=== PATIENT | female | born 1930 | race Caucasian/White ===

== ENCOUNTER 2017-06-30 13:37 | Inpatient (IN) | payer MEDICARE, OTHER ==
[2017-06-30] MEDS ORDERED: MECLIZINE HCL 25 MG TABLET PO ONE (14:38)
[2017-06-30 15:06] LABS: Hematocrit 45.9 % (37.0-47.0); Hemoglobin 14.4 gm/dL (12.5-16.0); Mean Cell Volume 101.5 fl (78-100); Mean Corpuscular Hemoglobin 31.9 pg (27-31); Mean Corpuscular Hgb Conc 31.4 g/dl (32-36); Mean Platelet Volume 10.9 fl (6.0-9.5); Neutrophil # 4.4 K/mm3 (1.3-6.0); Neutrophil % 63.7 % (42-75.0); Platelet Count 141 K/mm3 (150-450); Red Blood Count 4.52 M/mm3 (4.2-5.4); Red Cell Distribution Width 14.7 % (11.5-14.0); White Blood Count 6.9 K/mm3 (4.0-10.5)
[2017-06-30 15:26] LABS: ALT 15 U/L (19-67); AST 33 U/L (0-48); Albumin * 3.5 gm/dl (3.4-5.0); Alkaline Phosphatase * 52 U/L (50-170); Anion Gap 11.3 mmol/L (6.8-13.8); BUN/Creatinine Ratio 28.4 (9.0-21.6); Bilirubin, Total 0.7 mg/dL (0.0-1.1); Blood Urea Nitrogen 21 mg/dL (3-23); Ca. Corrected For Albumin 9.2 mg/dL (8.4-10.2); Calcium * 9.1 mg/dL (7.9-10.9); Carbon Dioxide 28.8 mmol/L (24-32.6); Chloride 104 mmol/L (97-106); Glucose * 91 mg/dL (70-110); Potassium 5.1 mmol/L (3.4-4.6); Sodium 139 mmol/L (132-142); Total Protein 7.6 gm/dL (6.2-8.2); Troponin I Less than 0.017 ng/ml (0.00-0.10)
[2017-06-30] MEDS ORDERED: NORMAL SALINE 1,000 ML IV ONE (15:37)
[2017-06-30] MEDS ORDERED: MECLIZINE HCL 25 MG TABLET ONE (15:40)
[2017-06-30 16:34] LABS: Urine Appearance Clear; Urine Bacteria None Seen; Urine Bilirubin Negative (NEGATIVE); Urine Blood Negative /ul (NEGATIVE); Urine Color Yellow; Urine Ketone 5 mg/dL (NEGATIVE); Urine Nitrite Negative (NEGATIVE); Urine Protein Negative (NEGATIVE); Urine RBC None Seen /hpf (0-5); Urine Specific Gravity 1.025 SP.GR. (1.005-1.010); Urine Urobilinogen Normal (NORMAL); Urine WBC None Seen /hpf (0-5)
--- NOTE | 2017-06-30 18:24 | ERNOTE ---
Dizziness ER Record Presenting Symptoms: dizziness, weakness, other - patient c/o sob Time Seen by Provider: 06/30/17 14:20 Source: patient, family Exam Limitations: no limitations - History of Present Illness Narrative: patient c/o weakness, dizzynees and sob for last several days Timing and Duration: gradual onset Severity: max: moderate Severity: currently: moderate Associated Symptoms: Present: weakness, light headedness Sense of movement: Present: spinning Decreased ability to stand/walk:: Present: weak, difficult, off balance Usually:: Present: walks only w/ assistance Modifying Factors - (Improves): Reports: changing position, standing position Modifying Factors - (Worsens): Reports: nothing Review of Systems - Narrative Narrative: patient has gradually become weaker with dizzyness - Review of Systems Constitutional: Present: See HPI, weakness, fatigue, malaise EYE: Present: no symptoms reported ENT: Present: no symptoms reported Respiratory: Present: See HPI, shortness of breath, orthopnea Cardiology: Present: no symptoms reported Gastrointestinal/Abdominal: Present: no symptoms reported Genitourinary: Present: no symptoms reported Musculoskeletal: Present: no symptoms reported Skin: Present: no symptoms reported Neurological: Present: weakness, tingling Endocrine: Present: no symptoms reported Hematologic/Lymphatic: Present: no symptoms reported Psych: Present: no symptoms reported All Other Systems: All systems neg except as marked - Narrative Narrative: patient poor historian - Patient's Past Medical History Patient History - Cardiac/Respiratory: Atrial Fibrillation Patient History - Cancer: No Hx of Cancer Patient History - Surgical Procedures: Noncontributory Patient History - Other: None LMP (females 10-50): Menopausal - Family History Family History:: no untoward family reactions to anesthesia, no familial bleeding tendencies, no family history of clotting disorders, no family history of premature - Social History Living Situations: alone Abuse History: No History of abuse Psych History: No pertinent hx Smoking Status: Never smoker Have you smoked in the past 12 months: No Do you dip or chew tobacco: No Patient requests Smoking Cessation Consult: No Initiate information on Smoking Cessation: No Alcohol Use: none - Immunizations Immunizations Up to Date: Yes Hx Pneumococcal Vaccination: Yes History of Influenza Vaccine: Yes Physical Exam - Physical Exam General Appearance: Present: mild distress, lethargic, thin, cachetic Head Exam: Present: normal inspection, no evidence of injury Eye Exam: Normal inspection: bilateral, PERRL: bilateral, EOMI: bilateral Ears, Nose, Throat: Present: normal ENT inspection Neck: Present: normal inspection, nontender Respiratory: Present: decreased breath sounds, rales, rhonchi Cardiovascular/Chest: Present: irregularly irregular Peripheral Pulses: N=norm/S=strong/W=weak/B=bound/A=absent: Carotid (R): Normal , Carotid (L): Normal, Radial (R): Normal, Radial (L): Normal, Femoral (R): Normal, Femoral (L): Normal, Dorsalis-pedis (R): Normal, Dorsalis-pedis (L): Normal Gastrointestinal/Abdominal: Present: normal bowel sounds, nontender, nondistended, soft, no organomegaly Back Exam: Present: normal inspection, normal range of motion, no vertebral tenderness, other - noted kyphosis Extremity Exam: Present: normal inspection, normal range of motion, no edema, other - contractures of extremities DTR: N=norm/NB=norm/brisk/A=abs/DD=dull/dimin/HC=hyperactive: Bicep (R): Normal , Bicep (L): Normal, Tricep (R): Normal, Tricep (L): Normal, Knee (R): Normal, Knee (L): Normal, Ankle (R): Normal, Ankle (L): Normal Skin Exam: Present: normal color, warm/dry Lymphatic Exam: Present: no adenopathy ED Progress - Date and Time Seen: Date and Time: 06/30/17 18:23 patient unchanged - Results and Orders Patient's Lab Results:: I have reviewed the patient's lab results. - Vital Signs Patient's Vital Signs:: I have reviewed the patient's vital signs. Vital Signs: Vital Signs 06/30/17 06/30/17 06/30/17 14:09 16:13 16:51 Temperature 36.3 C L Pulse Rate 102 H 92 94 Respiratory 17 88 H 19 Rate Blood Pressure 122/74 121/69 132/58 O2 Sat by Pulse 99 94 95 Oximetry 06/30/17 06/30/17 17:40 18:08 Temperature Pulse Rate 96 86 Respiratory 20 21 H Rate Blood Pressure 139/64 113/70 O2 Sat by Pulse 99 91 Oximetry - EKG EKG: atrial fibrillation - Progress/Reassessment Chief Complaint: Dizziness Progress:: Unchanged - Transfer of Care Expected Disposition: Admit Plan - Plan Plan: to be admitted Departure Clinical Impression: Pneumonia - Departure Disposition: FM Condition: Poor Referrals: Rene Ramos MD [Primary Care Provider] -
[2017-06-30 19:06] LABS: Prothrombin Time (Patient) 11.4 Seconds (9.0-11.0)
[2017-06-30 19:07] LABS: INR 1.14 INR (0.90-1.10)
--- NOTE | 2017-06-30 23:46 | HP ---
Chief Complaint - Chief Complaint Date of Service: 06/30/17 Time of Service: 23:44 Chief Complaint: ''Dizziness''. Source of HPI- Pt reliable, ERP report, Pt's EMR. History of Present Illness: Mrs. Christianson is a 86-yr-old WF pt of Dr. Rene Ramos with a PMH of: A-fib, CHF, HTN, Hypothyroidism & Osteoporosis. Pt states that she has always had dizziness and but today's episode was the worse she had ever felt and could not take it. She called her neighbour friends who brought her to the ED. She describes the dizziness as the sensation of head spinning. She denies any falls. She still gets around with a cane. She denies the associated symptoms of : SOB & palpitations. She also denies coughing, fever and chills. At the ED, the CXR showed: Left basilar opacities which was concerning for Pneumonia and small LT pleural effusion. The head CT revealed: small calcified mass on RT temporal lobe, concerning for a small Meningioma, & old lacunar infarct, and further evaluation with MRI of the brain was recommended. She had BNP of 3945, otherwise all other labs were unremarkable. UA negative of infection. During physical exam, she had desaturations to 85% while at rest, had decreased LS and reports ongoing dizziness. According to PSI for CAP, she is a class IV risk out of V which carries a mortality of 9.3% and will therefore need to be admitted inpatient. - Patient's Past Medical History Patient History - Medical: Hypothyroidism, Osteoporosis Patient History - Cardiac/Respiratory: Atrial Fibrillation, CHF, Hypertension Patient History - Cancer: No Hx of Cancer Patient History - Surgical Procedures: Appendectomy, Colonoscopy, Hysterectomy, T & A Patient History - Other: None LMP (females 10-50): Menopausal - Family History Family History:: no untoward family reactions to anesthesia, no familial bleeding tendencies, no family history of clotting disorders, no family history of premature - Family History Father Family History - Medical: , Other - Rheumatoid Arthritis. Mother Family History - Medical: Family History - Cardiac/Respiratory: Pneumonia - Social History Living Situations: alone Abuse History: No History of abuse Psych History: No pertinent hx Smoking Status: Never smoker Have you smoked in the past 12 months: No Do you dip or chew tobacco: No Patient requests Smoking Cessation Consult: No Initiate information on Smoking Cessation: No Alcohol Use: none Drug Use: none - Immunizations Immunizations Up to Date: Yes Hx Pneumococcal Vaccination: Yes History of Influenza Vaccine: Yes Review Of Systems (GEN) - Review of Systems Generalized/Overall Review: Present: Malaise. Absent: Weakness, Chills, Fever EENTM: Absent: Eye Pain, Blurred Vision, Ear Discharge, Nose Congestion Respiratory: Absent: Cough, Shortness of Breath, Orthopnea Cardiac: Absent: Chest Pain, Edema, Palpitations, Syncope Abdominal: Absent: Nausea, Vomiting, Hematemesis, Abdominal Pain, Diarrhea Genitourinary: Absent: Burning, Itching, Urgency Musculoskeletal: Present: Back Pain Neurological: Absent: Headache, Anxiety, Depressed Skin: Absent: Dryness, Lesions, Lumps, Bruising Endocrine: Present: Intolerance to Cold. Absent: Flushing, Increased Thirst Misc: All systems neg except as marked Allergies/Adverse Reactions: Allergies Allergy/AdvReac Type Severity Reaction Status Date / Time Penicillins Allergy Unknown Verified 06/30/17 18:39 Sulfa (Sulfonamide Allergy Unknown Verified 06/30/17 18:39 Antibiotics) Home Medications: HOME MEDICATIONS Digoxin [Digitek] 125 mcg PO DAILY 06/30/17 [Last Taken Unknown] Levothyroxine Sodium [Synthroid] 25 mcg PO DAILY 06/30/17 [Last Taken Unknown] Losartan/Hydrochlorothiazide [Hyzaar 100-25 Tablet] 1 each PO DAILY 06/30/17 [ Last Taken Unknown] Potassium Chloride [Klor-Con 10] 10 meq PO DAILY 06/30/17 [Last Taken Unknown] Verapamil HCl [Verapamil ER] 240 mg PO DAILY 06/30/17 [Last Taken Unknown] Exam - Exam Vital Signs: Vital Signs - Last Taken Temp 36.5 C 06/30/17 23:16 Pulse 78 06/30/17 23:16 Resp 18 06/30/17 23:16 BP 104/56 06/30/17 23:16 Pulse Ox 93 06/30/17 23:16 Constitutional: Present: Alert, Oriented x3, Cooperative, Elderly, Thin and frail ENT Exam: Present: normal ENT inspection. Absent: nasal drainage, pharyngeal erythema Eye Exam: bilateral eye: normal inspection, PERRL Neck: Present: non-tender, full range of motion, supple Back Exam: Present: normal inspection Breasts: Present: Exam deferred Respiratory: Present: decreased breath sounds, No rales, No wheezing Cardiovascular/Chest: Present: normal peripheral pulses, no edema, irregularly irregular Abdomen: Present: Normal bowel sounds, soft, nontender /Rectal: Present: Exam deferred Extremity: Present: normal range of motion, non-tender, normal inspection Skin Exam: Present: warm/dry, no cyanosis Lymphatic: Present: no adenopathy Neurologic: Present: normal cerebellar test, alert, normal mood/affect Appearance: Present: appropriate appearance, appropriate insight Eye contact: Present: cooperative, good eye contact, normal speech Thoughts: Present: no apparent hallucination Diagnostic Studies: Abnormal Lab Results 06/30/17 Range/Units Unknown B-Natriuretic Peptide 3945 H (5-550) pg/mL Laboratory Results WBC 6.9 K/mm3 (4.0-10.5) 06/30/17 15:00 RBC 4.52 M/mm3 (4.2-5.4) 06/30/17 15:00 Hgb 14.4 gm/dL (12.5-16.0) 06/30/17 15:00 Hct 45.9 % (37.0-47.0) 06/30/17 15:00 MCV 101.5 fl (78-100) H 06/30/17 15:00 MCH 31.9 pg (27-31) H 06/30/17 15:00 MCHC 31.4 g/dl (32-36) L 06/30/17 15:00 RDW 14.7 % (11.5-14.0) H 06/30/17 15:00 Plt Count 141 K/mm3 (150-450) L 06/30/17 15:00 MPV 10.9 fl (6.0-9.5) H 06/30/17 15:00 Immature Gran % (Auto) 0.60 % (0.001-0.429) H 06/30/17 15:00 Immature Gran # (Auto) 0.04 K/mm3 (0.000-0.0310) H 06/30/17 15:00 Neutrophils % 63.7 % (42-75.0) 06/30/17 15:00 Lymphocytes % 24.7 % (20-51) 06/30/17 15:00 Monocytes % 8.8 % (0.0-9) 06/30/17 15:00 Eosinophils % 1.3 % (0.0-3.0) 06/30/17 15:00 Basophils % 0.9 % (0.0-1.0) 06/30/17 15:00 Nucleated RBC % 0.0 k/mm3 (0-1) 06/30/17 15:00 Neutrophils # 4.4 K/mm3 (1.3-6.0) 06/30/17 15:00 Lymphocytes # 1.7 k/mm3 (1.5-3.5) 06/30/17 15:00 Monocytes # 0.6 k/mm3 (0.0-1.0) 06/30/17 15:00 Eosinophils # 0.1 k/mm3 (0.0-0.7) 06/30/17 15:00 Absolute Basophils 0.1 k/mm3 (0.0-0.1) 06/30/17 15:00 PT 11.4 Seconds (9.0-11.0) H 06/30/17 18:38 INR (Anticoag Therapy) 1.14 INR (0.90-1.10) H 06/30/17 18:38 PTT (Otis) 26.0 Seconds (24-32) 06/30/17 18:38 Sodium 139 mmol/L (132-142) 06/30/17 15:00 Plasma Sodium 139 mmol/L (130-142) 06/30/17 15:00 Potassium 5.1 mmol/L (3.4-4.6) H D 06/30/17 15:00 Chloride 104 mmol/L (97-106) 06/30/17 15:00 Carbon Dioxide 28.8 mmol/L (24-32.6) 06/30/17 15:00 Anion Gap 11.3 mmol/L (6.8-13.8) 06/30/17 15:00 BUN 21 mg/dL (3-23) 06/30/17 15:00 Creatinine 0.74 mg/dL (0.4-1.4) 06/30/17 15:00 Est GFR (Non-Af Amer) 79 mL/min (60-130) 06/30/17 15:00 BUN/Creatinine Ratio 28.4 (9.0-21.6) H 06/30/17 15:00 Random Glucose 91 mg/dL (70-110) 06/30/17 15:00 Lactic Acid, Venous 1.3 mmol/L (0.4-1.9) 06/30/17 15:00 Calcium 9.1 mg/dL (7.9-10.9) 06/30/17 15:00 Calcium Adj for Albumin 9.2 mg/dL (8.4-10.2) 06/30/17 15:00 Total Bilirubin 0.7 mg/dL (0.0-1.1) 06/30/17 15:00 AST 33 U/L (0-48) 06/30/17 15:00 ALT 15 U/L (19-67) L 06/30/17 15:00 Alkaline Phosphatase 52 U/L (50-170) 06/30/17 15:00 Troponin I Less than 0.017 ng/ml (0.00-0.10) 06/30/17 15:00 B-Natriuretic Peptide 3945 pg/mL (5-550) H 06/30/17 Unknown Total Protein 7.6 gm/dL (6.2-8.2) 06/30/17 15:00 Albumin 3.5 gm/dl (3.4-5.0) 06/30/17 15:00 Urine Color Yellow 06/30/17 16:12 Urine Appearance Clear 06/30/17 16:12 Urine pH 6.0 pH (5.0-7.0) 06/30/17 16:12 Ur Specific [place] 1.025 SP.GR. (1.005-1.010) 06/30/17 16:12 Urine Protein Negative mg/dL (NEGATIVE) 06/30/17 16:12 Urine Glucose (UA) Negative mg/dL (NEGATIVE) 06/30/17 16:12 Urine Ketones 5 mg/dL (NEGATIVE) 06/30/17 16:12 Urine Blood Negative /ul (NEGATIVE) 06/30/17 16:12 Urine Nitrate Negative (NEGATIVE) 06/30/17 16:12 Urine Bilirubin Negative mg/dl (NEGATIVE) 06/30/17 16:12 Urine Urobilinogen Normal EU/dl (NORMAL) 06/30/17 16:12 Ur Leukocyte Esterase Negative /ul (NEGATIVE) 06/30/17 16:12 Urine RBC None seen /hpf (0-5) 06/30/17 16:12 Urine WBC None seen /hpf (0-5) 06/30/17 16:12 Ur Epithelial Cells None seen /hpf (0-5) 06/30/17 16:12 Urine Bacteria None seen (NONE) 06/30/17 16:12 Urine Culture Comments No culture indicated 06/30/17 16:12 Influenza Type A Ag Negative (NEGATIVE) 06/30/17 18:38 Influenza Type B Ag Negative (NEGATIVE) 06/30/17 18:38 Assessment/Plan - Assessment/Plan (1) Pneumonia Assessment: Pt is an elderly 86-yr old WF who presented with dizziness. Even though she did not have SOB, fevers, and coughing, the symptoms can be subtle in the elderly. She has desaturations to the 85% RA requiring pox supplementation. She has PSI score of class IV which puts her at an increased chance of mortality from CAP. She will be admitted inpatient and both prognosis and clinical condition will depend upon clinical course, test results, response to treatment and complications. Will cover with IV Rocephin and Azithromycin. Monitor V.S, am Labs, Provide O2 supplementation. She was negative for the Influenza. Check urine legionella and Strep. pneumo Ag. Blood and sputum culture are pending. Problem: Acute Qualifiers: Laterality: unspecified laterality (2) Pleural effusion Assessment: Small LT pleural effusion- likely due to Pneumonia or CHF. Monitor for resolution. Problem: Acute (3) A-fib Assessment: Place on Remote tele., On Digoxin daily. Problem: Chronic (4) Discharge planning issues Assessment: Will need placement at discharge for continued strengthening. She lives independent and with continued on and off dizziness, she is at risk for falls. She prefers to go to the [facility] Mgt. will assist. Problem: Acute (5) Meningioma Assessment: Noted on the Head CT. May consider obtaining an MRI Brain to identify characteristics, however treatment depends on meningioma size, location, pt's age, symptoms, comorbidities and treatment preference. Problem: Acute (6) HTN (hypertension) Assessment: Stable - On Lorsatan. Problem: Chronic (7) Hypothyroidism Assessment: Stable- Synthroid. Problem: Chronic
[2017-07-01] MEDS: AZITHROMYCIN 250 MG TABLET PO SCH ×2 (00:39→21:21)
[2017-07-01 05:50] LABS: Hematocrit 38.6 % (37.0-47.0); Hemoglobin 12.4 gm/dL (12.5-16.0); Mean Cell Volume 98.7 fl (78-100); Mean Corpuscular Hemoglobin 31.7 pg (27-31); Mean Corpuscular Hgb Conc 32.1 g/dl (32-36); Mean Platelet Volume 10.8 fl (6.0-9.5); Neutrophil # 4.2 K/mm3 (1.3-6.0); Platelet Count 176 K/mm3 (150-450); Red Blood Count 3.91 M/mm3 (4.2-5.4); Red Cell Distribution Width 14.6 % (11.5-14.0); White Blood Count 6.2 K/mm3 (4.0-10.5)
[2017-07-01 06:09] LABS: Anion Gap 6.7 mmol/L (6.8-13.8); BUN/Creatinine Ratio 26.1 (9.0-21.6); Calcium * 8.2 mg/dL (7.9-10.9); Carbon Dioxide 33.3 mmol/L (24-32.6); Estimated Creat Clear 50.7
--- NOTE | 2017-07-01 06:35 | PN ---
Subjective - Date and Time Seen Date: 07/01/17 Time: 06:35 Subjective Narrative: Pt seen this am. She has no complaints. No acute events overnight. Wants to go to the [facility] at discharge. Objective - Vitals Vitals: Last Vital Signs Temp 36.7 C 07/01/17 06:19 Pulse 87 07/01/17 06:19 Resp 20 07/01/17 06:19 BP 120/61 07/01/17 06:19 Pulse Ox 97 07/01/17 06:19 - Abnormal Lab Findings Abnormal Lab Findings: Abnormal Lab Results 06/30/17 07/01/17 07/01/17 Range/Units Unknown 05:25 05:25 RBC 3.91 L (4.2-5.4) M/mm3 Hgb 12.4 L (12.5-16.0) gm/dL MCH 31.7 H (27-31) pg RDW 14.6 H (11.5-14.0) % MPV 10.8 H (6.0-9.5) fl Immature Gran % (Auto) 0.50 H (0.001-0.429) % Monocytes % 9.4 H (0.0-9) % Lymphocytes # 1.3 L (1.5-3.5) k/mm3 Sodium 143 H (132-142) mmol/L Plasma Sodium 143 H (130-142) mmol/L Chloride 107 H (97-106) mmol/L Carbon Dioxide 33.3 H (24-32.6) mmol/L Anion Gap 6.7 L (6.8-13.8) mmol/L BUN/Creatinine Ratio 26.1 H (9.0-21.6) B-Natriuretic Peptide 3945 H (5-550) pg/mL - Exam Constitutional: Present: Alert, Oriented x3, Cooperative, Elderly ENT Exam: Present: normal ENT inspection Neck: Present: non-tender, full range of motion, supple Breasts: Present: Exam deferred Respiratory: Present: chest non-tender, lungs clear Cardiovascular/Chest: Present: no murmur Abdomen: Present: Normal bowel sounds, soft, nontender, nondistended /Rectal: Present: Exam deferred Extremity: Present: normal range of motion, non-tender, normal inspection Skin Exam: Present: warm/dry, no cyanosis Lymphatic: Present: no adenopathy Appearance: Present: appropriate appearance, appropriate insight Eye contact: Present: cooperative, good eye contact, normal speech Thoughts: Present: normal thought pattern, no apparent hallucination Assessment/Plan - Problems/Diagnosis (1) Pneumonia Problem: Acute Qualifiers: Laterality: unspecified laterality Narrative: Pt is an elderly 86-yr old WF who presented with dizziness. Even though she did not have SOB, fevers, and coughing, the symptoms can be subtle in the elderly. She has desaturations to the 85% RA requiring pox supplementation. She has PSI score of class IV which puts her at an increased chance of mortality from CAP. She will be admitted inpatient and both prognosis and clinical condition will depend upon clinical course, test results, response to treatment and complications. Will cover with IV Rocephin and Azithromycin. Monitor V.S, am Labs, Provide O2 supplementation. She was negative for the Influenza. Check urine legionella and Strep. pneumo Ag. Blood and sputum culture are pending. (2) Pleural effusion Problem: Acute Narrative: Small LT pleural effusion- likely due to Pneumonia or CHF. Monitor for resolution. (3) Discharge planning issues Problem: Acute Narrative: Will need placement at discharge for continued strengthening. She lives independent and with continued on and off dizziness, she is at risk for falls. She prefers to go to the [facility] Mgt. will assist. (4) Meningioma Problem: Acute Narrative: Noted on the Head CT. May consider obtaining an MRI Brain to identify characteristics, however treatment depends on meningioma size, location, pt's age, symptoms, comorbidities and treatment preference. (5) A-fib Problem: Chronic Narrative: Place on telemetry, continue digoxin. (6) HTN (hypertension) Problem: Chronic Narrative: Stable- Lorsatan. (7) Hypothyroidism Problem: Chronic Narrative: Stable- synthroid.
[2017-07-01] MEDS: LEVOTHYROXINE SODIUM 25 MCG TABLET PO SCH (07:18)
[2017-07-01] MEDS ORDERED: NON-FORMULARY 1 DOSE DOSE (Losartan/Hydrochlorothiazide [Hyzaar 100-25 Tablet] 1 EACH) PO SCH (09:00)
[2017-07-01] MEDS ORDERED: NON-FORMULARY 1 DOSE DOSE (Potassium Chloride [Klor-Con 10] 10 MEQ) PO SCH (09:00)
[2017-07-01] MEDS: LOSARTAN POTASSIUM 50 MG TABLET PO SCH (09:19)
[2017-07-01] MEDS: VERAPAMIL HCL 240 MG TABLET.SA PO SCH (09:20)
[2017-07-01] MEDS: HYDROCHLOROTHIAZIDE 25 MG TABLET PO SCH (09:20)
[2017-07-01] MEDS: DIGOXIN 0.125 MG TABLET PO SCH (09:20)
--- NOTE | 2017-07-01 10:57 | PN ---
Progess Note - Interim Narrative: 07/01/17 10:54 I saw nad examined this patient on 07/01/2017. I agree with the narrative and plan of ANN Whittington. Will continue with her IV antibiotics for CAP. She says she is feeling better this morning than yesterday. Her dizziness is better. She does not want to pursue the mass on her temporal area and will defer MRI then.
[2017-07-01] MEDS: cefTRIAXone SODIUM 1,000 MG in DEXTROSE 5 % IN WATER 50 ML IV SCH ×2 (17:02)
[2017-07-02] MEDS: LEVOTHYROXINE SODIUM 25 MCG TABLET PO SCH (06:32)
[2017-07-02] MEDS: VERAPAMIL HCL 240 MG TABLET.SA PO SCH (08:53)
[2017-07-02] MEDS: LOSARTAN POTASSIUM 50 MG TABLET PO SCH (08:53)
[2017-07-02] MEDS: HYDROCHLOROTHIAZIDE 25 MG TABLET PO SCH (08:54)
[2017-07-02] MEDS: DIGOXIN 0.125 MG TABLET PO SCH (08:54)
--- NOTE | 2017-07-02 12:21 | PN ---
Subjective - Date and Time Seen Date: 07/02/17 Time: 12:17 Subjective Narrative: Was tachycardic while walking in the hallway. She wants to go to the [facility]. Objective - Review of Systems Generalized/Overall Review: Reports: Weakness. Denies: Chills, Fever Respiratory: Reports: Cough, Shortness of Breath. Denies: Wheezing Cardiac: Denies: Chest Pain, Edema, Palpitations Abdominal: Denies: Nausea, Vomiting Genitourinary Symptoms: Denies: Urgency, Frequency Musculoskeletal Complaints: Reports: Joint Pain - Vitals Vitals: Last Vital Signs Temp 36.3 C L 07/02/17 10:39 Pulse 103 H 07/02/17 10:39 Resp 14 07/02/17 10:39 BP 112/55 07/02/17 10:39 Pulse Ox 90 07/02/17 10:39 - Exam Constitutional: Present: Alert, Oriented x3, Cooperative ENT Exam: Present: hearing grossly normal Neck: Present: supple Respiratory: Present: decreased breath sounds, No rales, No wheezing Cardiovascular/Chest: Present: no JVD, no murmur, irregularly irregular Abdomen: Present: Normal bowel sounds, soft, nontender, nondistended Extremity: Present: no calf tenderness, pedal edema Assessment/Plan - Problems/Diagnosis (1) Pneumonia Problem: Acute Qualifiers: Laterality: unspecified laterality Narrative: continue with present management. (2) Meningioma Problem: Acute Narrative: dizziness, resolved. does not want any aggressive measures to be taken diagnostic/therapeutic for her mass. (3) Pleural effusion Problem: Acute (4) A-fib Problem: Chronic (5) HTN (hypertension) Problem: Chronic (6) Hypothyroidism Problem: Chronic
[2017-07-02] MEDS: cefTRIAXone SODIUM 1,000 MG in DEXTROSE 5 % IN WATER 50 ML IV SCH ×2 (17:38)
[2017-07-02] MEDS: AZITHROMYCIN 250 MG TABLET PO SCH (21:29)
[2017-07-03 06:23] LABS: Hematocrit 38.7 % (37.0-47.0); Hemoglobin 12.6 gm/dL (12.5-16.0); Mean Corpuscular Hemoglobin 31.6 pg (27-31); Mean Corpuscular Hgb Conc 32.6 g/dl (32-36); Mean Platelet Volume 11.3 fl (6.0-9.5); Neutrophil # 4.4 K/mm3 (1.3-6.0); Neutrophil % 70.2 % (42-75.0); Platelet Count 175 K/mm3 (150-450); Red Blood Count 3.99 M/mm3 (4.2-5.4); Red Cell Distribution Width 14.4 % (11.5-14.0); White Blood Count 6.2 K/mm3 (4.0-10.5)
[2017-07-03] MEDS: LEVOTHYROXINE SODIUM 25 MCG TABLET PO SCH (07:19)
--- NOTE | 2017-07-03 08:31 | DS ---
(1) Pneumonia Problem: Acute Qualifiers: Laterality: unspecified laterality (2) Meningioma Problem: Acute (3) Pleural effusion Problem: Acute (4) A-fib Problem: Chronic Qualifiers: Atrial fibrillation type: chronic Qualified Code(s): I48.2 - Chronic atrial fibrillation (5) HTN (hypertension) Problem: Chronic Qualifiers: Hypertension type: essential hypertension Qualified Code(s): I10 - Essential (primary) hypertension (6) Hypothyroidism Problem: Chronic Description of Stay: Manuela Christianson is a 86-yr-old WF pt of Dr. Rene Ramos with a PMH of: A-fib , CHF, HTN, Hypothyroidism & Osteoporosis who was admitted on 06/30/2017 for dizziness . . Pt stated that she had always had dizziness and but today's episode was the worse she had ever felt and could not take it. She called her neighbour friends who brought her to the ED. She describes the dizziness as the sensation of head spinning. She denies any falls. She still gets around with a cane. She denied the associated symptoms of: SOB & palpitations. She also denied coughing, fever and chills. At the ED, the CXR showed: Left basilar opacities which was concerning for Pneumonia and small LT pleural effusion. The head CT revealed: small calcified mass on RT temporal lobe, concerning for a small Meningioma, & old lacunar infarct, and further evaluation with MRI of the brain was recommended. She had BNP of 3945, otherwise all other labs were unremarkable. UA negative of infection. During physical exam, she had desaturations to 85% while at rest, had decreased LS and reports ongoing dizziness. According to PSI for CAP, she is a class IV risk out of V which carries a mortality of 9.3% and therefore admitted inpatient. She was started on IV antibiotics and breathing treatment. She did not want an MRI or any aggressive interventio for her possible meningioma. She wanted to go to the [facility]. She is table to go to the [facility] today. Procedures Performed: none Discharge Disposition: [facility] Disposition: [facility] Condition: Poor Discharge Activity: Activity as tolerated Discharge Diet: General/regular food Discharge Level of Care:: SNF - Care Home Care Home Therapy: Physicial Therapy, Occupation Therapy Referrals: Rene Ramos MD [Primary Care Provider] - Additional Patient Instructions (free text): TCM appointment unless correction discharge. Thank you! Kayleigh @ [phone]. PCP will follow up patient in [place]. Complete Home Medications List: Complete Home Medication List: Digoxin [Digitek] 125 mcg PO DAILY 06/30/17 Levothyroxine Sodium [Synthroid] 25 mcg PO DAILY 06/30/17 Losartan/Hydrochlorothiazide [Hyzaar 100-25 Tablet] 1 each PO DAILY 06/30/17 Potassium Chloride [Klor-Con 10] 10 meq PO DAILY 06/30/17 Verapamil HCl [Verapamil ER] 240 mg PO DAILY 06/30/17 Azithromycin [Zithromax] 250 mg PO HS #7 tablet 07/03/17
[2017-07-03] MEDS: VERAPAMIL HCL 240 MG TABLET.SA PO SCH (09:43)
[2017-07-03] MEDS: HYDROCHLOROTHIAZIDE 25 MG TABLET PO SCH (09:48)
[2017-07-03] MEDS: DIGOXIN 0.125 MG TABLET PO SCH (09:48)
[2017-07-03] MEDS: LOSARTAN POTASSIUM 50 MG TABLET PO SCH (09:48)
[2017-07-03 09:49] VITALS: BP 109/49
== END 2017-07-03 13:35 | DRG 195 ==
LOC: ER 13:37 → MS 18:38
PROVIDERS: ADMIT Internal Medicine; ATTEND Internal Medicine
DX: E03.9 Hypothyroidism, unspecified; D32.0 Benign neoplasm of cerebral meninges; J18.9 Pneumonia, unspecified organism; I10 Essential (primary) hypertension; I48.2 Chronic atrial fibrillation

== ENCOUNTER 2018-03-29 11:21 | Observation (INO) | payer BC, MEDICARE ==
--- NOTE | 2018-03-29 11:46 | ERNOTE ---
Time Seen by Provider: 03/29/18 11:23 Stated Complaint: SOB Source: patient, [facility] records Exam Limitations: dementia Immunizations: IMMUNIZATION HX Immunizations Up to Date Yes History of Influenza Vaccine Yes Hx Pneumococcal Vaccination Yes Allergies/Adverse Reactions: Allergies cephalexin [From Keflex] Allergy (Unknown, Verified 01/03/18 11:46) unknown Penicillins Allergy (Unknown, Verified 01/03/18 11:46) unknown Sulfa (Sulfonamide Antibiotics) Allergy (Unknown, Verified 01/03/18 11:46) Hives Home Medications: HOME MEDICATIONS Digoxin [Digitek] 125 mcg PO DAILY 06/30/17 [Last Taken Unknown] Verapamil HCl [Verapamil ER] 240 mg PO DAILY 06/30/17 [Last Taken Unknown] acetaminophen 325 mg tablet 650 mg PO Q6H PRN tab 12/31/17 [Last Taken Unknown] citalopram 10 mg tablet 10 mg PO DAILY 12/31/17 [Last Taken Unknown] levothyroxine 25 mcg tablet 50 mcg PO DAILY tab 12/31/17 [Last Taken Unknown] polyethylene glycol 3350 17 gram/dose oral powder 17 g PO DAILY g 12/31/17 [ Last Taken Unknown] sennosides 8.6 mg tablet 17.2 mg PO HS tab 12/31/17 [Last Taken Unknown] - History of Present Ilness Narrative: Patient is coming form the [facility] for low O2sats. Patient is on 3l O2 per [place] usually, was found to have O2 sat in the 60's patient denies any problems, no chest pain, no shortness of breath, no cough, isn't aware that she is on oxygen daily Date (Duration): 03/29/18 Review of Systems - Review of Systems Constitutional: Absent: recent illness, fever, chills ENT: Absent: nose congestion, sore throat Respiratory: Absent: shortness of breath, cough Cardiology: Absent: chest pain Gastrointestinal/Abdominal: Absent: nausea, abdominal pain Genitourinary: Present: no symptoms reported Skin: Absent: rash Neurological: Absent: headache Medical History (Last Reviewed 03/29/18 @ 12:01 by Mila Gailcia MD) Osteoporosis (Acute) Onset Date: Unknown Hypothyroid (Acute) Onset Date: Unknown Hypertension (Acute) Onset Date: Unknown CHF (congestive heart failure) (Acute) Onset Date: Unknown Afib (Acute) Onset Date: Unknown Surgical History: Surgical History (Last Reviewed 03/29/18 @ 12:01 by Mila Galicia MD) Colonoscopy planned Onset Date: Unknown History of appendectomy Onset Date: ~1969 History of total abdominal hysterectomy Onset Date: ~1969 Tonsillectomy planned Onset Date: ~1939 Family History: Family History (Last Reviewed 01/03/18 @ 11:47 by Diana Gay) Father Rheumatoid arthritis Mother Osteoporosis Gallbladder disease Pneumonia Social History: Preferred Language Hungarian Do you have any temple or No cultural preference? Smoking Status Former smoker Abuse History No History of abuse Psych History No pertinent hx Alcohol Use none Drug Use none Physical Exam - Physical Exam General Appearance: Present: wd/wn, alert, no apparent distress, other - patient is severely kyphotic Eye Exam: Normal inspection: bilateral Ears, Nose, Throat: Present: normal pharynx Respiratory: Present: no respiratory distress, no accessory muscle use, lungs clear - right lung Cardiovascular/Chest: Present: regular rate, rhythm Gastrointestinal/Abdominal: Present: nontender, nondistended, soft Back Exam: Present: other - kyphotic Extremity Exam: Present: no edema Neurological Exam: Present: alert, disoriented to situation. Absent: disoriented to person Skin Exam: Present: normal color, warm/dry ED Progress - Results and Orders Patient's Lab Results:: I have reviewed the patient's lab results. - Vital Signs Patient's Vital Signs:: I have reviewed the patient's vital signs. Vital Signs: Vital Signs 03/29/18 11:23 03/29/18 11:33 Temperature 36.8 C Pulse Rate 74 Respiratory Rate 24 H Blood Pressure 102/38 O2 Sat by Pulse Oximetry 82 L 78 L - EKG EKG: atrial fibrillation, nonspecific ST T wave changes EKG read: Interp. by me - X-Ray X-Ray #1 X-Ray: chest - extensive opacification of left lung field on single view, clear right lung Interpretation: Interp. by oh - CT/Ultrasound CT/Ultrasound Narrative: CT chest IMPRESSION: 1. Examination limited by patient positioning. 2. Left lower lobe lingular consolidation/atelectasis. Right lower lobe basal segmental atelectasis versus consolidation. Consider multifocal pneumonia. 3. Opacification of the left lower lobe basal segmental bronchi, and the lingular bronchus. This may be dependent changes, but consider mucus plugging/ obstruction versus aspiration. 4. Mild to moderate deep and left-sided pleural fluid. Trace right-sided pleural fluid. 5. Cardiac enlargement, and right-sided chamber enlargement as discussed above. 6. Dilation of the main pulmonary artery suggestive of pulmonary arterial hypertension. 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 7. Additional comments are as above. - Progress/Reassessment Chief Complaint: Upper Respiratory Symptoms Progress Note-Subjective: 03/29/18 11:59 Patient has O2 sat in mid 70's on 3 liter but looks very comfortable, alert, no cyanosis 03/29/18 12:43 discussed Xray results with patient and friends who have the POA will get CT chest to evaluate for possible mass as no other symptoms of pneumonia 03/29/18 13:[address] Aiken 03/29/18 14:02 discussed results with patient and POA, agrees to admission 03/29/18 14:[address] Bruce, neb treatment, mucomyst to help with mucus plugging get procalcitonin to decide whether patient needs antibiotics as no fever, nl WBC, no cough Departure Clinical Impression: Hypoxemia CHF (congestive heart failure) Qualifiers: Heart failure type: unspecified Heart failure chronicity: acute on chronic Qualified Code(s): I50.9 - Heart failure, unspecified - Departure Disposition: Still a patient Condition: Stable
[2018-03-29 12:00] LABS: Hematocrit 37.5 % (37.0-47.0); Hemoglobin 11.9 gm/dL (12.5-16.0); Mean Cell Volume 96.4 fl (78-100); Mean Corpuscular Hemoglobin 30.6 pg (27-31); Mean Corpuscular Hgb Conc 31.7 g/dl (32-36); Neutrophil # 5.8 K/mm3 (1.3-6.0); Neutrophil % 68.8 % (42-75.0); Platelet Count 237 K/mm3 (150-450); Red Blood Count 3.89 M/mm3 (4.2-5.4); Red Cell Distribution Width 14.8 % (11.5-14.0); White Blood Count 8.5 K/mm3 (4.0-10.5)
[2018-03-29 12:20] LABS: ALT 20 U/L (19-67); AST 21 U/L (0-48); Albumin * 3.3 gm/dl (3.4-5.0); Alkaline Phosphatase * 49 U/L (50-170); Anion Gap 5.2 mmol/L (6.8-13.8); BNP * 7029 pg/mL (5-550); BUN/Creatinine Ratio 31.4 (9.0-21.6); Bilirubin, Total 0.3 mg/dL (0.0-1.1); Blood Urea Nitrogen 27 mg/dL (3-23); Calcium * 8.8 mg/dL (7.9-10.9); Carbon Dioxide 33.9 mmol/L (24-32.6); Chloride 102 mmol/L (97-106); Glucose * 89 mg/dL (70-110); Potassium 4.1 mmol/L (3.4-4.6); Sodium 137 mmol/L (132-142); Total Protein 6.8 gm/dL (6.2-8.2); Troponin I Less than 0.017 ng/mL (0.00-0.10)
[2018-03-29] MEDS ORDERED: FUROSEMIDE 10 MG/ML VIAL IV ONE (13:29)
[2018-03-29] MEDS ORDERED: FUROSEMIDE 10 MG/ML VIAL ONE (13:37)
[2018-03-29] MEDS ORDERED: ALBUTEROL SULFATE/IPRATROPIUM 3 ML NEBU IH PRN (15:13)
[2018-03-29] MEDS ORDERED: ACETYLCYSTEINE 100 MG/ML VIAL IH SCH (15:30)
[2018-03-29] MEDS ORDERED: ALBUTEROL SULFATE 2.5 MG/0.5 ML VIAL.NEB IH SCH (15:30)
[2018-03-29] MEDS ORDERED: ACETAMINOPHEN 325 MG TABLET PO PRN (17:18)
--- NOTE | 2018-03-29 17:18 | HP ---
Chief Complaint - Chief Complaint Date of Service: 03/29/18 Time of Service: 16:30 Chief Complaint: hypoxemia History of Present Illness: Onset today. trouble keeping the O2 sat up. PLaced on a O2 mask @ 10L to get O2 above 90%. She denies feeling poorly, being SOB, and her color is good. 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 CT ches shows mucous plugging, small pleural effusions, atelectasis. L. lung consolidation ivolving the LLL and lingula and a larger pleural effusion on the L. The comibination of all theses is what is causing her ventilatory failure. Medical History (Last Reviewed 03/29/18 @ 12:01 by Mila Galicia MD) Osteoporosis (Acute) Onset Date: Unknown Hypothyroid (Acute) Onset Date: Unknown Hypertension (Acute) Onset Date: Unknown CHF (congestive heart failure) (Acute) Onset Date: Unknown Afib (Acute) Onset Date: Unknown Surgical History: Surgical History (Last Reviewed 03/29/18 @ 12:01 by Mila Galicia MD) Colonoscopy planned Onset Date: Unknown History of appendectomy Onset Date: ~1969 History of total abdominal hysterectomy Onset Date: ~1969 Tonsillectomy planned Onset Date: ~1939 Family History: Family History (Last Reviewed 01/03/18 @ 11:47 by Diana Gay) Father Rheumatoid arthritis Mother Osteoporosis Gallbladder disease Pneumonia Social History: Patient Lives/Resources [facility] Utilized Occupation retired Preferred Language Peruvian Do you have any taoist or No cultural preference? Smoking Status Never smoker Have you smoked in the past 12 No months Do you dip or chew tobacco No Abuse History No History of abuse Psych History No pertinent hx Alcohol Use none Drug Use none Review Of Systems (GEN) - Review of Systems Generalized/Overall Review: Present: Malaise EENTM: Present: No Symptoms Reported Respiratory: Present: Cough, Shortness of Breath Cardiac: Present: No Symptoms Reported. Absent: Chest Pain, Edema, Palpitations Abdominal: Present: No Symptoms Reported. Absent: Nausea, Vomiting Genitourinary: Present: No Symptoms Reported Musculoskeletal: Present: No Symptoms Reported Neurological: Present: No Symptoms Reported Skin: Present: No Symptoms Reported Endocrine: Present: No Symptoms Reported Immunizations: IMMUNIZATION HX Immunizations Up to Date Yes History of Influenza Vaccine Yes Hx Pneumococcal Vaccination Yes Allergies/Adverse Reactions: Allergies Allergy/AdvReac Type Severity Reaction Status Date / Time cephalexin [From Keflex] Allergy Unknown unknown Verified 03/29/18 16:11 Penicillins Allergy Unknown unknown Verified 03/29/18 16:11 Sulfa (Sulfonamide Allergy Unknown Hives Verified 03/29/18 16:11 Antibiotics) Home Medications: HOME MEDICATIONS Digoxin [Digitek] 125 mcg PO DAILY 06/30/17 [Last Taken Unknown] Verapamil HCl [Verapamil ER] 240 mg PO DAILY 06/30/17 [Last Taken Unknown] acetaminophen 325 mg tablet 650 mg PO Q6H PRN tab 12/31/17 [Last Taken Unknown] citalopram 10 mg tablet 10 mg PO DAILY 12/31/17 [Last Taken Unknown] levothyroxine 25 mcg tablet 50 mcg PO DAILY tab 12/31/17 [Last Taken Unknown] polyethylene glycol 3350 17 gram/dose oral powder 17 g PO DAILY g 12/31/17 [ Last Taken Unknown] sennosides 8.6 mg tablet 17.2 mg PO HS tab 12/31/17 [Last Taken Unknown] Exam - Exam Vital Signs: Vital Signs - Last Taken Temp 36.0 C 03/29/18 15:06 Pulse 88 03/29/18 15:25 Resp 16 03/29/18 15:06 BP 126/64 03/29/18 15:06 Pulse Ox 93 03/29/18 15:06 Constitutional: Present: Alert, Oriented x3, Cooperative, Well developed, Well nourished, No distress ENT Exam: Present: normal ENT inspection, hearing grossly normal, pharynx normal Eye Exam: bilateral eye: normal inspection, PERRL, EOMI Neck: Present: non-tender, full range of motion Back Exam: Present: normal inspection, no CVA tenderness, no vertebral tenderness Breasts: Present: Exam deferred Respiratory: Present: chest non-tender, lungs clear, decreased breath sounds Cardiovascular/Chest: Present: normal peripheral pulses, regular rate, rhythm, no chest tenderness, no edema, no gallop, no JVD Peripheral Pulses: carotid (R): 2+, carotid (L): 2+, radial (R): 2+, radial (L) : 2+ Abdomen: Present: Normal bowel sounds, soft, nontender, nondistended, no rebound tenderness, no hepatospenomegaly, no masses /Rectal: Present: Exam deferred Extremity: Present: normal range of motion, non-tender, normal inspection, no pedal edema, no calf tenderness, normal capillary refill Skin Exam: Present: normal color, warm/dry, no cyanosis Lymphatic: Present: no adenopathy Neurologic: Present: wire stitcher II-XII nml as tested Appearance: Present: appropriate appearance Eye contact: Present: cooperative Thoughts: Present: normal thought pattern Diagnostic Studies: Abnormal Lab Results 03/29/18 03/29/18 03/29/18 Range/Units 11:54 11:54 11:54 RBC 3.89 L (4.2-5.4) M/mm3 Hgb 11.9 L (12.5-16.0) gm/dL MCHC 31.7 L (32-36) g/dl RDW 14.8 H (11.5-14.0) % Immature Gran % (Auto) 0.60 H (0.001-0.429) % Immature Gran # (Auto) 0.05 H (0.000-0.0310) K/mm3 pO2 57.2 L (83.0-108.0) mmHg Total CO2 28.0 H (19.0-24.0) mmol/L ABG O2 Sat (Measured) 89.9 L (94.0-98.0) % Carbon Dioxide 33.9 H (24-32.6) mmol/L Anion Gap 5.2 L (6.8-13.8) mmol/L BUN 27 H (3-23) mg/dL BUN/Creatinine Ratio 31.4 H (9.0-21.6) Alkaline Phosphatase 49 L (50-170) U/L B-Natriuretic Peptide 7029 H (5-550) pg/mL Albumin 3.3 L (3.4-5.0) gm/dl Procalcitonin (0.05-0.50) ng/mL 03/29/18 Range/Units 11:54 RBC (4.2-5.4) M/mm3 Hgb (12.5-16.0) gm/dL MCHC (32-36) g/dl RDW (11.5-14.0) % Immature Gran % (Auto) (0.001-0.429) % Immature Gran # (Auto) (0.000-0.0310) K/mm3 pO2 (83.0-108.0) mmHg Total CO2 (19.0-24.0) mmol/L ABG O2 Sat (Measured) (94.0-98.0) % Carbon Dioxide (24-32.6) mmol/L Anion Gap (6.8-13.8) mmol/L BUN (3-23) mg/dL BUN/Creatinine Ratio (9.0-21.6) Alkaline Phosphatase (50-170) U/L B-Natriuretic Peptide (5-550) pg/mL Albumin (3.4-5.0) gm/dl Procalcitonin Less than 0.05 L (0.05-0.50) ng/mL Laboratory Results WBC 8.5 K/mm3 (4.0-10.5) 03/29/18 11:54 RBC 3.89 M/mm3 (4.2-5.4) L 03/29/18 11:54 Hgb 11.9 gm/dL (12.5-16.0) L 03/29/18 11:54 Hct 37.5 % (37.0-47.0) 03/29/18 11:54 MCV 96.4 fl (78-100) 03/29/18 11:54 MCH 30.6 pg (27-31) 03/29/18 11:54 MCHC 31.7 g/dl (32-36) L 03/29/18 11:54 RDW 14.8 % (11.5-14.0) H 03/29/18 11:54 Plt Count 237 K/mm3 (150-450) 03/29/18 11:54 MPV 10.0 fl (8-12.5) 03/29/18 11:54 Immature Gran % (Auto) 0.60 % (0.001-0.429) H 03/29/18 11:54 Immature Gran # (Auto) 0.05 K/mm3 (0.000-0.0310) H 03/29/18 11:54 Neutrophils % 68.8 % (42-75.0) 03/29/18 11:54 Lymphocytes % 20.1 % (20-51) 03/29/18 11:54 Monocytes % 8.2 % (0.0-9) 03/29/18 11:54 Eosinophils % 1.5 % (0.0-3.0) 03/29/18 11:54 Basophils % 0.8 % (0.0-1.0) 03/29/18 11:54 Nucleated RBC % 0.0 k/mm3 (0-1) 03/29/18 11:54 Neutrophils # 5.8 K/mm3 (1.3-6.0) 03/29/18 11:54 Lymphocytes # 1.70 k/mm3 (1.5-3.5) 03/29/18 11:54 Monocytes # 0.7 k/mm3 (0.0-1.0) 03/29/18 11:54 Eosinophils # 0.1 k/mm3 (0.0-0.7) 03/29/18 11:54 Absolute Basophils 0.1 k/mm3 (0.0-0.1) 03/29/18 11:54 pCO2 43.4 mmHg (32.0-45.0) 03/29/18 11:54 pO2 57.2 mmHg (83.0-108.0) L 03/29/18 11:54 HCO3 26.6 mmol/L (21.0-28.0) 03/29/18 11:54 Total CO2 28.0 mmol/L (19.0-24.0) H 03/29/18 11:54 Base Excess 1.7 mmol/L (-2.0-3.0) 03/29/18 11:54 ABG pH 7.41 (7.35-7.45) 03/29/18 11:54 ABG O2 Sat (Measured) 89.9 % (94.0-98.0) L 03/29/18 11:54 Sodium 137 mmol/L (132-142) 03/29/18 11:54 Plasma Sodium 137 mmol/L (130-142) 03/29/18 11:54 Potassium 4.1 mmol/L (3.4-4.6) 03/29/18 11:54 Chloride 102 mmol/L (97-106) 03/29/18 11:54 Carbon Dioxide 33.9 mmol/L (24-32.6) H 03/29/18 11:54 Anion Gap 5.2 mmol/L (6.8-13.8) L 03/29/18 11:54 BUN 27 mg/dL (3-23) H 03/29/18 11:54 Creatinine 0.86 mg/dL (0.4-1.4) 03/29/18 11:54 Est GFR (Non-Af Amer) 66 mL/min (60-130) D 03/29/18 11:54 BUN/Creatinine Ratio 31.4 (9.0-21.6) H 03/29/18 11:54 Random Glucose 89 mg/dL (70-110) 03/29/18 11:54 Lactic Acid, Venous 1.0 mmol/L (0.4-2.0) 03/29/18 11:54 Calcium 8.8 mg/dL (7.9-10.9) 03/29/18 11:54 Calcium Adj for Albumin 9.0 mg/dL (8.4-10.2) 03/29/18 11:54 Total Bilirubin 0.3 mg/dL (0.0-1.1) 03/29/18 11:54 AST 21 U/L (0-48) 03/29/18 11:54 ALT 20 U/L (19-67) 03/29/18 11:54 Alkaline Phosphatase 49 U/L (50-170) L 03/29/18 11:54 Troponin I Less than 0.017 ng/mL (0.00-0.10) 03/29/18 11:54 B-Natriuretic Peptide 7029 pg/mL (5-550) H 03/29/18 11:54 Total Protein 6.8 gm/dL (6.2-8.2) 03/29/18 11:54 Albumin 3.3 gm/dl (3.4-5.0) L 03/29/18 11:54 Procalcitonin Less than 0.05 ng/mL (0.05-0.50) L 03/29/18 11:54
[2018-03-29] MEDS ORDERED: SENNOSIDES 8.6 MG TABLET PO SCH (21:00)
[2018-03-30] MEDS: ALBUTEROL SULFATE 2.5 MG/0.5 ML VIAL.NEB IH SCH ×2 (00:40→06:03)
[2018-03-30] MEDS: ACETYLCYSTEINE 100 MG/ML VIAL IH SCH ×2 (00:43→06:03)
[2018-03-30 05:49] LABS: Hematocrit 40.7 % (37.0-47.0); Hemoglobin 12.9 gm/dL (12.5-16.0); Mean Cell Volume 96.9 fl (78-100); Mean Corpuscular Hemoglobin 30.7 pg (27-31); Mean Corpuscular Hgb Conc 31.7 g/dl (32-36); Mean Platelet Volume 10.4 fl (8-12.5); Neutrophil # 5.2 K/mm3 (1.3-6.0); Neutrophil % 69.9 % (42-75.0); Platelet Count 244 K/mm3 (150-450); Red Cell Distribution Width 14.6 % (11.5-14.0); White Blood Count 7.5 K/mm3 (4.0-10.5)
[2018-03-30 05:59] LABS: Albumin * 3.6 gm/dl (3.4-5.0); BUN/Creatinine Ratio 26.1 (9.0-21.6); Bilirubin, Total 0.5 mg/dL (0.0-1.1); Ca. Corrected For Albumin 8.8 mg/dL (8.4-10.2); Calcium * 8.8 mg/dL (7.9-10.9); Carbon Dioxide 36.6 mmol/L (24-32.6); Potassium 3.6 mmol/L (3.4-4.6); Total Protein 7.4 gm/dL (6.2-8.2)
[2018-03-30] MEDS ORDERED: LEVOTHYROXINE SODIUM 25 MCG TABLET PO SCH (07:00)
[2018-03-30] MEDS ORDERED: LEVOTHYROXINE SODIUM 50 MCG TABLET PO SCH (07:30)
[2018-03-30] MEDS ORDERED: VERAPAMIL HCL 240 MG TABLET.SA PO SCH (09:00)
[2018-03-30] MEDS ORDERED: POLYETHYLENE GLYCOL 3350 119 GM BTL PO SCH (09:00)
[2018-03-30] MEDS ORDERED: CITALOPRAM HYDROBROMIDE 10 MG TABLET PO SCH (09:00)
[2018-03-30] MEDS ORDERED: DIGOXIN 0.125 MG TABLET PO SCH (09:00)
--- NOTE | 2018-03-30 10:59 | DS ---
Description of Stay: Manuela Christianson is an 87-year-old female admitted with hypoxia. CT of her chest showed a variety of issues contributing to her hypoxemia including mucous plugging, profound thoracic kyphosis, and a probable pneumonia in the left lower lobe and lingular lobe. She has not had any signs or symptoms of pneumonia and actually denies feeling short of breath when her O2 sat is about 70%. She was requiring oxygen by mask at 13 L initially was weaned down to 6 L and then had to go back to 11 L and then 10 L but this morning is down to 3 L on nasal cannula and doing just fine. She had RT treatments with Mucomyst and even though she has not coughed up anything her breath sounds are definitely improved and she is moving more air now. She will be returned to the [facility]. Procedures Performed: none Results and Findings: Lab Pending Results 03/29/18 11:54: WBC 8.5, RBC 3.89 L, Hgb 11.9 L, Hct 37.5, MCV 96.4, MCH 30.6, MCHC 31.7 L, RDW 14.8 H, Plt Count 237, MPV 10.0, Immature Gran % (Auto) 0.60 H , Immature Gran # (Auto) 0.05 H, Neutrophils % 68.8, Lymphocytes % 20.1, Monocytes % 8.2, Eosinophils % 1.5, Basophils % 0.8, Nucleated RBC % 0.0, Neutrophils # 5.8, Lymphocytes # 1.70, Monocytes # 0.7, Eosinophils # 0.1, Absolute Basophils 0.1 03/29/18 11:54: Sodium 137, Plasma Sodium 137, Potassium 4.1, Chloride 102, Carbon Dioxide 33.9 H, Anion Gap 5.2 L, BUN 27 H, Creatinine 0.86, Est GFR (Non- Af Amer) 66 D, BUN/Creatinine Ratio 31.4 H, Random Glucose 89, Calcium 8.8, Calcium Adj for Albumin 9.0, Total Bilirubin 0.3, AST 21, ALT 20, Alkaline Phosphatase 49 L, Troponin I Less than 0.017, B-Natriuretic Peptide 7029 H, Total Protein 6.8, Albumin 3.3 L 03/29/18 11:54: pCO2 43.4, pO2 57.2 L, HCO3 26.6, Total CO2 28.0 H, Base Excess 1.7, ABG pH 7.41, ABG O2 Sat (Measured) 89.9 L 03/29/18 11:54: Lactic Acid, Venous 1.0 03/29/18 11:54: Procalcitonin Less than 0.05 L 03/30/18 05:40: WBC 7.5, RBC 4.20, Hgb 12.9, Hct 40.7, MCV 96.9, MCH 30.7, MCHC 31.7 L, RDW 14.6 H, Plt Count 244, MPV 10.4, Immature Gran % (Auto) 0.50 H, Immature Gran # (Auto) 0.04 H, Neutrophils % 69.9, Lymphocytes % 19.8 L, Monocytes % 8.3, Eosinophils % 0.7, Basophils % 0.8, Nucleated RBC % 0.0, Neutrophils # 5.2, Lymphocytes # 1.48 L, Monocytes # 0.6, Eosinophils # 0.1, Absolute Basophils 0.1 03/30/18 05:40: Sodium 139, Plasma Sodium 139, Potassium 3.6, Chloride 100, Carbon Dioxide 36.6 H, Anion Gap 6.0 L, BUN 23, Creatinine 0.88, Est GFR (Non- Af Amer) 64, BUN/Creatinine Ratio 26.1 H, Random Glucose 91, Calcium 8.8, Calcium Adj for Albumin 8.8, Total Bilirubin 0.5, AST 21, ALT 23, Alkaline Phosphatase 53, Total Protein 7.4, Albumin 3.6 Discharge Location: [facility] Disposition: Intermediate Care Facility ICF Condition: Fair Face to Face Encounter completed per [facility] Guidelines: No Level of Care: ICF Discharge Activity: Activity as tolerated Discharge Diet: General/regular food Referrals: Rene Ramos MD [Primary Care Provider] - Prescriptions (Any new or edited meds): Cefuroxime Axetil [Ceftin] 250 mg PO Q12H #20 tab Complete Home Medications List: Complete Home Medication List: Digoxin [Digitek] 125 mcg PO DAILY 06/30/17 Verapamil HCl [Verapamil ER] 240 mg PO DAILY 06/30/17 acetaminophen 325 mg tablet 650 mg PO Q6H PRN tab 12/31/17 citalopram 10 mg tablet 10 mg PO DAILY 12/31/17 levothyroxine 25 mcg tablet 50 mcg PO DAILY tab 12/31/17 polyethylene glycol 3350 17 gram/dose oral powder 17 g PO DAILY g 12/31/17 sennosides 8.6 mg tablet 17.2 mg PO HS tab 12/31/17 Albuterol Sulfate [Albuterol Sulfate 2.5 MG/0.5ML] 2.5 mg IH Q6HRT vial.neb Cefuroxime Axetil [Ceftin] 250 mg PO Q12H #20 tab 03/30/18
[2018-03-30 11:59] VITALS: BP 133/68
[2018-03-30] MEDS ORDERED: LEVALBUTEROL HCL 1.25 MG/3 ML AMPUL IH SCH (13:00)
== END 2018-03-30 12:50 ==
LOC: ER 11:21 → MS 11:21
PROVIDERS: ADMIT Family Medicine; ATTEND Family Medicine
DX: J18.1 Lobar pneumonia, unspecified organism
CPT/HCPCS: 36415; 36600; 71010; 71045; 71260; 80053; 82803; 83519; 83605; 83880; 84145; 84484; 85025; 87040; 87081; 93005; 94640; 94664; 94760; 96374; 99284; G0378